=== PATIENT | male | born 1980 | race African-American/Black ===

== ENCOUNTER 2018-06-24 16:11 | Emergency (ER) | payer MEDICAID ==
[~2018-06-24] VITALS: Ht 167.6 cm; Wt 93.0 kg
[2018-06-24 16:47] VITALS: BP 133/94
== END 2018-06-24 19:39 | disposition home or self-care (01) ==
LOC: ER 16:18
DX: F20.9 Schizophrenia, unspecified (principal); F31.9 Bipolar disorder, unspecified